=== PATIENT | male | born 1985 | race Caucasian/White ===

== ENCOUNTER 2021-01-09 22:26 | Emergency (ER) | payer SELFPAY ==
[~2021-01-09] VITALS: Ht 182.9 cm; Wt 81.6 kg
[2021-01-09 22:26] VITALS: BP 149/95
[2021-01-09] MEDS ORDERED: BACITRACIN OINT 500 UNITS/GM PKT TP ONE ×3 (22:41→23:03)
[2021-01-09] MEDS ORDERED: SULFAMETH/TRIMETH DS 800/160MG 1 TAB PO ONE (23:00)
[2021-01-09] MEDS ORDERED: SULF-59 PO (23:29)
[2021-01-09] MEDS ORDERED: IBUP-2218 PO (23:29)
== END 2021-01-09 23:34 | disposition home or self-care (01) ==
LOC: MED 22:26
DX: L98.499 Non-pressure chronic ulcer of skin of other sites with unspecified severity (principal); Z02.89 Encounter for other administrative examinations
CPT/HCPCS: 99283